=== PATIENT | female | born 2000 | race Two or more races ===

== ENCOUNTER 2025-03-06 15:51 | Emergency (ER) | payer SELFPAY ==
[2025-03-06 15:52] VITALS: BMI 55.5
[2025-03-06 16:50] VITALS: BP 135/88; PULSE 99; RESP 18; TEMP 36.9; O2SAT 95
--- NOTE | 2025-03-06 16:54 | PD.EDEAR ---
ED Ear RME/HPI General Chief complaint: Ear Stated complaint: BILAT. EAR PAIN WITH MUFFLED HEARING ON R EAR Time Seen by Provider: 03/06/25 15:54 Arrival date/time: 03/06/25 15:51 25-year-old female presents to the Emergency Department today complains of bilateral ear pain patient reports symptoms onset a few days ago patient reports multiple ear infections in the past. Patient reports no fever nausea or vomiting no headache dizziness or weakness Limitations: no limitations Related Data Previous Rx's ?Medication ?Instructions ?Recorded acetic acid 2 % ear solution 5 drop otic (ear) Q6H #15 mL 02/02/19 ibuprofen 800 mg tablet 800 mg PO TID PRN pain #30 tabs 02/05/19 IBU 800 mg tablet (ibuprofen) 800 mg PO Q6H PRN pain #30 tabs 12/27/21 ciprofloxacin 0.3 %-dexamethasone 4 drp otic (ear) BID #7.5 mL 10/17/22 0.1 % ear drops,suspension (Ciprodex) cefdinir 300 mg capsule 300 mg PO BID 10 days #20 caps 03/06/25 ibuprofen 800 mg tablet 800 mg PO TID PRN pain #30 tabs 03/06/25 ofloxacin 0.3 % ear drops 10 drop otic (ear) QDAY 10 days 03/06/25 #10 mL Allergies Allergy/AdvReac Type Severity Reaction Status Date / Time amoxicillin Allergy Severe Hives Verified 03/06/25 15:55 Review of Systems Review of Systems Systems Reviewed: All systems reviewed, normal except as documented Constitutional Constitutional: Reports system reviewed and no additional complaints, except as documented, Denies fever(s) and Denies headache(s) Eyes Eyes: Reports system reviewed and no additional complaints, except as documented and Denies blurry vision ENT Ears, Nose, Mouth, and Throat: Reports system reviewed and no additional complaints, except as documented, Reports ear discharge, Reports otalgia, Denies headache(s), Denies nasal congestion and Denies nasal discharge Cardiovascular Cardiovascular: Reports system reviewed and no additional complaints, except as documented, Denies chest pain and Denies dyspnea Respiratory Respiratory: Reports system reviewed and no additional complaints, except as documented, Denies chest congestion, Denies cough and Denies dyspnea Gastrointestinal Gastrointestinal: Reports system reviewed and no additional complaints, except as documented and Denies abdominal pain Integumentary/Breasts Skin/Breast: Reports system reviewed and no additional complaints, except as documented and Denies rash Neurologic Neurologic: Reports system reviewed and no additional complaints, except as documented, Reports as per HPI and Denies headache(s) Past Medical History Past Medical History CARDIAC: Negative Congestive Heart Failure RESPIRATORY: Negative Chronic Obstructive Pulmonary Disease (COPD) GENITOURINARY: Negative Renal Disease ENDOCRINE: Negative Diabetes Mellitus Type 1 or Diabetes Mellitus Type 2 Social History SMOKING STATUS: Never smoker ED Exam General Limitations: Present no limitations General appearance: Present alert and in no apparent distress Head Head exam: Present atraumatic Eye Eye exam: Present normal appearance, PERRL and EOMI ENT ENT exam: Present normal oropharynx and mucous membranes moist Expanded ENT Exam TM/Canal exam: Bilateral TM: erythema, bulging and canal tenderness Neck Neck exam: Present normal inspection, full ROM and trachea midline Chest Chest inspection: Present normal inspection and symmetric chest wall rise Respiratory Respiratory exam: Present normal lung sounds bilaterally Cardiovascular Cardiovascular exam: Present regular rate, normal rhythm and normal heart sounds Abdominal Exam Abdominal exam: Present soft and normal bowel sounds Extremities Exam Extremities exam: Present normal inspection and full ROM Back Exam Back exam: Present normal inspection and full ROM Neurological Exam Neurological exam: Present alert, oriented X3 and CN II-XII intact Psychiatric Psychiatric exam: Present normal affect and normal mood Skin Skin exam: Present warm, dry, intact and normal color Course Quality Measures none Vital Signs Vital signs: Vital Signs Temperature 98.5 F 03/06/25 16:50 Pulse Rate 99 03/06/25 16:50 Respiratory Rate 18 03/06/25 16:50 Blood Pressure 135/88 H 03/06/25 16:50 Pulse Oximetry (%) 95 03/06/25 16:50 Oxygen Delivery Method Room Air 03/06/25 16:50 O2 saturation 95% room air with no limits Ear Patient data External records reviewed:: [facility] previous records Clinical information provided by:: patient Social determinants that could affect healthcare access:: none Patient has the following chronic illnesses:: None How is presenting disease/condition affected by chronic disease/condition?: no chronic disease Evaluation data The following diagnostics were reviewed and interpreted by me:: other (specify) (N/A) Lab and/or radiology exams considered but not ordered:: Considered not ordered Interpretation Summary: N/A Medications / Prescriptions Medications or Prescriptions considered but not ordered:: Given Medication administrations:: Given Consultations Consultation(s) initiated? (list below): No Diagnosis Ear Differential Diagnosis: otitis externa, otitis media and foreign body in ear Most likely diagnosis given after review of the tests above:: Bilateral ear pain Admission Indicated Admission indicated?: not indicated Admission Request Was there a request for admission?: No Disposition Plan Disposition Plan: Discharge Discharge Attestation Discharge Attestation: The patient and all family members were given an opportunity to ask questions and understood the discharge instructions. Discharge instructions specifically effects, indications for sooner follow up or return to the emergency department, and the expected course of current diagnosis. Patient condition: Stable Medical Decision Making MDM Narrative MDM Narrative: 25-year-old female presents to the Emergency Department today complains of bilateral ear pain patient reports symptoms onset a few days ago patient reports multiple ear infections in the past. Patient reports no fever nausea or vomiting no headache dizziness or weakness On exam patient well-appearing patient is not appear look toxic no acute stress Patient discharged home in no distress to follow-up with primary care doctor in the next 24 to 48 hours and for any worsening symptoms to return to the ER immediately Differential Diagnosis Differential Diagnosis: Otitis media, otitis externa Medical Records Medical records reviewed: Yes I reviewed the patient's medical records. Discharge Plan Plan Patient Disposition: HOME (Self Care) Discharge Disposition comment: Stable Prescriptions/Referrals Prescriptions/Med Rec: New ibuprofen 800 mg tablet 800 mg PO TID PRN (Reason: pain) Qty: 30 0RF cefdinir 300 mg capsule 300 mg PO BID 10 Days Qty: 20 0RF ofloxacin 0.3 % drops 10 drop BOTH EARS QDAY 10 Days Qty: 10 0RF No Action acetic acid 2 % solution 5 drop BOTH EARS Q6H Qty: 15 0RF Rx Instructions: apply to (cotton) wick; replace wick every 24 hours ibuprofen 800 mg tablet 800 mg PO TID PRN (Reason: pain) Qty: 30 0RF ibuprofen [IBU] 800 mg tablet 800 mg PO Q6H PRN (Reason: pain) Qty: 30 0RF ciprofloxacin-dexamethasone [Ciprodex] 0.3-0.1 % drops,suspension 4 drp otic (ear) BID Qty: 7.5 0RF Problem List Clinical Impression: Bilateral otitis media Patient/Caregiver Discharge Instructions Education Materials: Anatomy of the Ear Additional Instructions: Please follow up with your primary care doctor in the next 24-48hrs for any worsening symptoms return here immediately Print Language: Citizen Of The [place] Stand Alone Forms: Radha Award Info., Patient Portal Info Letter PA/PUBLIC TRANSIT SPECIALIST Supervising Physician PA/PUBLIC TRANSIT SPECIALIST Supervising Physician: Dr. rae
== END 2025-03-06 17:00 | disposition home or self-care (01) ==
PROVIDERS: Emergency Provider Emergency Medicine
DX: H66.93 Otitis media, unspecified, bilateral (principal)
CPT/HCPCS: 99281